=== PATIENT | male | born 1955 | race Caucasian/White ===

== ENCOUNTER 2017-05-24 22:34 | Emergency (ER) | payer MEDICAID ==
[2017-05-24 22:35] VITALS: BMI 32.4
[2017-05-24 23:00] VITALS: BP 145/96; PULSE 64; RESP 18; TEMP 97.7; O2SAT 99
[2017-05-24] MEDS ORDERED: Silver Nitrate Topical - Stick TOP ONE (23:09)
--- NOTE | 2017-05-24 23:14 | ED PDOC ---
Arrival/HPI - General Chief Complaint: ENT Problem Time Seen by Provider: 05/24/17 23:02 Historian: Patient - History of Present Illness Narrative History of Present Illness (Text): 05/24/17 23:14 A 61 year old male, whose past medical history includes hypertension and diabetes, presents to the emergency department for right nares epistaxis on and off for the past two days. Patient denies any fever, headache, dizziness, nausea , vomiting or any other complaints at this time. Time/Duration: Other (2 days) Symptom Onset: Sudden Symptom Course: Improving Activities at Onset: Rest Context: Home Past Medical History - Provider Review Nursing Documentation Reviewed: Yes - Cardiac Hx Hypertension: Yes - Psychiatric Hx Substance Use: No Family/Social History - Physician Review Nursing Documentation Reviewed: Yes Family/Social History: No Known Family HX Smoking Status: no Hx Alcohol Use: No Hx Substance Use: No Hx Substance Use Treatment: No Allergies/Home Meds Allergies/Adverse Reactions: Allergies No Known Allergies Allergy (Verified 05/02/13 09:45) Home Medications: Home Meds Medication Instructions Recorded Confirmed Amlodipine Besylate [Norvasc] 5 mg PO DAILY 05/02/13 05/02/13 Review of Systems - Physician Review All systems were reviewed & negative as marked: Yes - Review of Systems Constitutional: absent: Fevers ENT: Epistaxis (right nares) Gastrointestinal: absent: Nausea, Vomiting Neurological: absent: Headache, Dizziness Physical Exam Vital Signs Reviewed: Yes Vital Signs Temp Pulse Resp BP Pulse Ox 05/24/17 22:57 97.7 F 64 18 145/96 H 99 Temperature: Afebrile Blood Pressure: Hypertensive Pulse: Regular Respiratory Rate: Normal Appearance: Positive for: Well-Appearing, Non-Toxic, Comfortable Pain Distress: None Mental Status: Positive for: Alert and Oriented X 3 - Systems Exam Head: Present: Atraumatic, Normocephalic Pupils: Present: PERRL Extroacular Muscles: Present: EOMI Conjunctiva: Present: Normal Mouth: Present: Moist Mucous Membranes Nose (Internal): Present: No Active Bleeding. No: Edematous, Boggy, Rhinorrhea Neck: Present: Normal Range of Motion Respiratory/Chest: Present: Clear to Auscultation, Good Air Exchange. No: Respiratory Distress, Accessory Muscle Use Cardiovascular: Present: Regular Rate and Rhythm, Normal S1, S2. No: Murmurs Abdomen: Present: Normal Bowel Sounds. No: Tenderness, Distention, Peritoneal Signs Back: Present: Normal Inspection Upper Extremity: Present: Normal Inspection. No: Cyanosis, Edema Lower Extremity: Present: Normal Inspection. No: Edema Neurological: Present: GCS=15, CN II-XII Intact, Speech Normal Skin: Present: Warm, Dry, Normal Color. No: Rashes Psychiatric: Present: Alert, Oriented x 3, Normal Insight, Normal Concentration Medical Decision Making ED Course and Treatment: 05/24/17 23:12 Impression: A 61 year old male with right nares epistaxis. Plan: -- Silver Nitrate Topical Stick -- Reassess and disposition Prior Visits: Notes and results from previous visits were reviewed. Patient was last seen in the emergency department on 05/02/13 for evaluation of right nares epistaxis. Progress Notes: 05/25/17 00:12 rt nare cauterized with silver nitrate On re-evaluation, patient feels better and is in no acute distress. I have discussed the results and plan with the patient, who expresses understanding. Patient in agreement with plan to be discharged home. Patient is stable for discharge. Patient was instructed to follow up with physician or return if symptoms worsen or new concerning symptoms arise. 05/25/17 02:34 - Medication Orders Current Medication Orders: Discontinued Medications Silver Nitrate (Silver Nitrate Topical Stick) 1 swa TOP ONCE ONE Stop: 05/24/17 23:10 Last Admin: 05/24/17 23:45 Dose: 1 swa Comments: by MD Supa Farfan Statement The provider has reviewed the documentation as recorded by the Naheed Montiel Provider Scribe Attestation: All medical record entries made by the Naheed were at my direction and personally dictated by me. I have reviewed the chart and agree that the record accurately reflects my personal performance of the history, physical exam, medical decision making, and the department course for this patient. I have also personally directed, reviewed, and agree with the discharge instructions and disposition. Disposition/Present on Arrival - Present on Arrival Any Indicators Present on Arrival: No History of DVT/PE: No History of Uncontrolled Diabetes: No Urinary Catheter: No History of Decub. Ulcer: No History Surgical Site Infection Following: None - Disposition Have Diagnosis and Disposition been Completed?: Yes Diagnosis: Epistaxis Disposition: HOME/ ROUTINE Disposition Time: 00:20 Condition: GOOD Discharge Instructions (ExitCare): Nosebleed (ED) Referrals: Cheko Lanza DO [Staff Provider] - Follow up with primary Forms: [employer] ([place])
== END 2017-05-25 00:18 | disposition home or self-care (01) ==
LOC: ED 22:34
DX: R04.0 Epistaxis (principal)

== ENCOUNTER 2018-07-19 09:13 | Outpatient (CLI) | payer MEDICAID | END 2018-07-19 09:14 | disposition home or self-care (01) | LOC: RAD 09:13 ==